=== PATIENT | male | born 1985 | race Two or more races ===

== ENCOUNTER 2017-07-09 12:40 | Emergency (ER) | payer SELFPAY ==
--- NOTE | 2017-07-09 13:09 | ER Document Report ---
ED Medical Screen (RME) - General Chief Complaint: High Blood Pressure Stated Complaint: BLOOD PRESSURE ISUES Time Seen by Provider: 07/09/17 13:02 Notes: This 31-year-old male patient comes emergency room complaining of a one-week history of elevated blood pressure, cold sweats, exhaustion, nausea vomiting weakness, dizziness. He has been on metformin in the past but no longer takes that medication. He was seen by primary care and started BuSpar, sertraline, and lisinopril HCTZ on 06/29/2017. He works at a [employer]. He reports not eating all last week, but ate this morning and then when he got to work this morning he felt quite nauseous. I have greeted and performed a rapid initial assessment of this patient. A comprehensive ED assessment and evaluation of the patient, analysis of test results and completion of the medical decision making process will be conducted by additional ED providers. TRAVEL OUTSIDE OF THE [place] IN LAST 30 DAYS: No - Related Data Allergies/Adverse Reactions: No Known Allergies Allergy (Verified 07/09/17 12:48) Past Medical History - Social History Chew tobacco use (# tins/day): No Frequency of alcohol use: Occasional - Past Medical History Cardiac Medical History: Reports: Hx Hypercholesterolemia, Hx Hypertension Pulmonary Medical History: Reports: Hx Asthma - childhood Endocrine Medical History: Reports: Hx Diabetes Mellitus Type 2 Renal/ Medical History: Denies: Hx Peritoneal Dialysis GI Medical History: Reports: Hx Gastroesophageal Reflux Disease Psychiatric Medical History: Reports: Hx Depression Physical Exam - Vital signs Vitals: Temp Pulse Resp BP Pulse Ox 98.5 F 117 H 16 127/90 H 97 07/09/17 12:46 07/09/17 12:46 07/09/17 12:46 07/09/17 12:46 07/09/17 12:46 Course - Vital Signs Vital signs: Temp Pulse Resp BP Pulse Ox 98.5 F 117 H 16 127/90 H 97 07/09/17 12:46 07/09/17 12:46 07/09/17 12:46 07/09/17 12:46 07/09/17 12:46
[2017-07-09 13:50] LABS: APPEARANCE,URINE CLEAR; BILIRUBIN,URINE NEGATIVE (NEGATIVE); GLUCOSE, URINE >=500 mg/dL (NEGATIVE); KETONES,URINE TRACE mg/dL (NEGATIVE); LEUKOCYTE ESTERASE,URINE NEGATIVE (NEGATIVE); NITRITE,URINE NEGATIVE (NEGATIVE); PROTEIN,URINE NEGATIVE (NEGATIVE); URINE SPECIFIC GRAVITY 1.029; UROBILINOGEN,URINE NEGATIVE mg/dL (<2.0)
[2017-07-09 13:52] LABS: ABSOLUTE MONOCYTES (AUTO) 0.9 10^3/uL (0.1-1.4); ABSOLUTE NEUT (AUTO) 12.3 10^3/uL (1.7-8.2); BASOPHILS % (AUTO) 0.2 % (0-2); EOSINOPHILS % (AUTO) 0.1 % (0-6); HEMATOCRIT 49.7 % (37.9-51.0); HEMOGLOBIN 17.6 g/dL (13.5-17.0); HGB HCT DIFFERENCE 3.1; LYMPHOCYTES % (AUTO) 6.7 % (13-45); MEAN CORPUSCULAR HGB CONC 35.3 g/dL (32.0-36.0); MEAN CORPUSCULAR VOLUME 85 fl (80-97); MONOCYTES % (AUTO) 6.5 % (3-13); RED BLOOD COUNT 5.86 10^6/uL (4.35-5.55); RED CELL DISTRIBUTION WIDTH 12.2 % (11.5-14.0); SEGMENTED NEUTROPHILS % (AUTO) 86.5 % (42-78); WHITE BLOOD COUNT 14.3 10^3/uL (4.0-10.5)
[2017-07-09] MEDS ORDERED: NORMAL SALINE 1000 ML 1,000 ML IV ONE (13:58)
[2017-07-09] MEDS ORDERED: NORMAL SALINE 1000 ML 2,000 ML IV ONE (13:58)
--- NOTE | 2017-07-09 14:01 | ER Document Report ---
ED General - General Chief Complaint: High Blood Pressure Stated Complaint: BLOOD PRESSURE ISUES Time Seen by Provider: 07/09/17 13:02 Mode of Arrival: Ambulatory Information source: Patient Notes: Patient presents complaining of nausea and vomiting 4 episodes today, lightheadedness, shortness of breath with intermittent chest pain since 1030 today. Patient does report occasional diaphoresis. Patient denies any cough or cold symptoms, sore throat or fever. Patient states he does have a history of diabetes although has not been on any medications to treat this as he did not have insurance for many years and then he saw a doctor a few years ago and was told that his blood sugar was okay. TRAVEL OUTSIDE OF THE [place] IN LAST 30 DAYS: No - HPI Onset: This morning Onset/Duration: Persistent Quality of pain: Achy Pain Level: 2 Associated symptoms: Chest pain, Nausea, Vomiting, Shortness of breath, Sweating. denies: Nonproductive cough, Productive cough, Diarrhea, Fever Exacerbated by: Denies Relieved by: Denies Similar symptoms previously: No Recently seen / treated by doctor: No - Related Data Allergies/Adverse Reactions: No Known Allergies Allergy (Verified 07/09/17 12:48) Home Medications: Current Home Medications Buspirone HCl 1 tab PO DAILY 07/09/17 [History] Lisinopril/Hydrochlorothiazide [Lisinopril-Hctz 10-12.5 mg Tab] 1 tab PO DAILY 07/09/17 [History] Sertraline HCl 1 tab PO DAILY 07/09/17 [History] Past Medical History - General Information source: Patient - Social History Smoking Status: Never Smoker Chew tobacco use (# tins/day): No Frequency of alcohol use: Occasional Drug Abuse: None Occupation: [employer] Lives with: Spouse/Significant other Family History: Reviewed & Not Pertinent - Past Medical History Cardiac Medical History: Reports: Hx Hypercholesterolemia, Hx Hypertension Pulmonary Medical History: Reports: Hx Asthma - childhood Endocrine Medical History: Reports: Hx Diabetes Mellitus Type 2 Renal/ Medical History: Denies: Hx Peritoneal Dialysis GI Medical History: Reports: Hx Gastroesophageal Reflux Disease Psychiatric Medical History: Reports: Hx Depression Surgical Hx: Negative Review of Systems - Review of Systems Constitutional: No symptoms reported. denies: Fever EENT: No symptoms reported Cardiovascular: Chest pain, Dizziness Respiratory: Short of breath. denies: Cough Gastrointestinal: Nausea, Vomiting. denies: Abdominal pain, Diarrhea Genitourinary: No symptoms reported. denies: Dysuria, Flank pain Male Genitourinary: No symptoms reported Musculoskeletal: No symptoms reported. denies: Back pain Skin: No symptoms reported Hematologic/Lymphatic: No symptoms reported Neurological/Psychological: No symptoms reported. denies: Headaches Physical Exam - Vital signs Vitals: Temp Pulse Resp BP Pulse Ox 98.5 F 117 H 16 127/90 H 97 07/09/17 12:46 07/09/17 12:46 07/09/17 12:46 07/09/17 12:46 07/09/17 12:46 - General General appearance: Appears well, Alert In distress: None - HEENT Head: Normocephalic, Atraumatic Eyes: Normal Conjunctiva: Normal Nasal: Normal Mouth/Lips: Normal Mucous membranes: Dry Neck: Normal, Supple. No: Lymphadenopathy - Respiratory Respiratory status: No respiratory distress Chest status: Nontender Breath sounds: Normal. No: Rhonchi, Stridor, Wheezing Chest palpation: Normal - Cardiovascular Rhythm: Tachycardia Heart sounds: S1 appreciated, S2 appreciated Murmur: No - Abdominal Inspection: Obese Distension: No distension Bowel sounds: Normal Tenderness: Nontender Organomegaly: No organomegaly - Back Back: Normal, Nontender. No: CVA tenderness, Vertebra tenderness - Extremities General upper extremity: Normal inspection, Normal ROM General lower extremity: Normal inspection, Nontender, Normal ROM - Neurological Neuro grossly intact: Yes Cognition: Normal [place] Coma Scale Eye Opening: Spontaneous [place] Coma Scale Verbal: Oriented [place] Coma Scale Motor: Obeys Commands [place] Coma Scale Total: 15 - Psychological Associated symptoms: Normal affect, Normal mood - Skin Skin Temperature: Warm Skin Moisture: Dry Skin Color: Normal Course - Re-evaluation Re-evalutation: 07/09/17 15:[address] Hand regarding patient presentation. Advises treating patient's hyperglycemia with metformin and having him follow-up with his primary doctor for recheck. 07/09/17 18:41 Patient denies any chest pain symptoms at this time. Vital signs stable. Patient feeling much better. Discussed diabetic diet with patient importance for monitoring his blood sugar. Discussed worsening signs or symptoms that patient should return to me before. Patient verbalized understanding and agrees with plan of care The patient has atypical chest pain as the patient's chest pain is not suggestive of pulmonary embolus, cardiac ischemia, aortic dissection, or other serious etiology. Given the extremely low risk of these diagnoses for the test in evaluation for these possibilities does not appear to be indicated at this time. Patient has been instructed to return if the symptoms worsen or change in any way. - Vital Signs Vital signs: Temp Pulse Resp BP Pulse Ox 98.5 F 117 H 16 127/90 H 97 07/09/17 12:46 07/09/17 12:46 07/09/17 12:46 07/09/17 12:46 07/09/17 12:46 - Laboratory Result Diagrams: 07/09/17 13:25 07/09/17 13:25 Laboratory results interpreted by me: 07/09/17 07/09/17 07/09/17 13:25 13:25 13:25 WBC 14.3 H RBC 5.86 H Hgb 17.6 H Seg Neutrophils % 86.5 H Lymphocytes % 6.7 L Absolute Neutrophils 12.3 H Sodium 131.1 L Chloride 91 L Glucose 606 H* POC Glucose Calcium 10.3 H Alkaline Phosphatase 141 H Creatine Kinase Urine Glucose (UA) >=500 H Urine Ketones TRACE H 07/09/17 07/09/17 13:25 16:52 WBC RBC Hgb Seg Neutrophils % Lymphocytes % Absolute Neutrophils Sodium Chloride Glucose POC Glucose 245 H Calcium Alkaline Phosphatase Creatine Kinase 40 L Urine Glucose (UA) Urine Ketones 07/09/17 18:43 Labs- Entire Visit 07/09/17 07/09/17 07/09/17 13:25 13:25 13:25 WBC 14.3 H RBC 5.86 H Hgb 17.6 H Hct 49.7 MCV 85 MCH 30.0 MCHC 35.3 RDW 12.2 Plt Count 254 Seg Neutrophils % 86.5 H Lymphocytes % 6.7 L Monocytes % 6.5 Eosinophils % 0.1 Basophils % 0.2 Absolute Neutrophils 12.3 H Absolute Lymphocytes 1.0 Absolute Monocytes 0.9 Absolute Eosinophils 0.0 Absolute Basophils 0.0 Sodium 131.1 L Potassium 4.8 Chloride 91 L Carbon Dioxide 25 Anion Gap 15 BUN 16 Creatinine 0.96 Est GFR ( Amer) > 60 Est GFR (Non-Af Amer) > 60 Glucose 606 H* POC Glucose Calcium 10.3 H Total Bilirubin 1.1 Direct Bilirubin 0.4 Indirect Bilirubin Not Reportable Neonat Total Bilirubin Not Reportable AST 41 ALT 52 Alkaline Phosphatase 141 H Creatine Kinase Total Creatine Kinase CK-MM (CK-3) CK-MB (CK-2) CK-BB (CK-1) Macro CK Type I Troponin I Total Protein 7.5 Albumin 4.6 Lipase Urine Color STRAW Urine Appearance CLEAR Urine pH 6.0 Ur Specific [place] 1.029 Urine Protein NEGATIVE Urine Glucose (UA) >=500 H Urine Ketones TRACE H Urine Blood NEGATIVE Urine Nitrite NEGATIVE Urine Bilirubin NEGATIVE Urine Urobilinogen NEGATIVE Ur Leukocyte Esterase NEGATIVE Urine WBC (Auto) 1 Urine RBC (Auto) 1 Urine Ascorbic Acid NEGATIVE Urine Opiates Screen Urine Methadone Screen Ur Barbiturates Screen Ur Phencyclidine Scrn Ur Amphetamines Screen U Benzodiazepines Scrn Urine Cocaine Screen U Marijuana (THC) Screen 07/09/17 07/09/17 07/09/17 13:25 13:25 13:25 WBC RBC Hgb Hct MCV MCH MCHC RDW Plt Count Seg Neutrophils % Lymphocytes % Monocytes % Eosinophils % Basophils % Absolute Neutrophils Absolute Lymphocytes Absolute Monocytes Absolute Eosinophils Absolute Basophils Sodium Potassium Chloride Carbon Dioxide Anion Gap BUN Creatinine Est GFR ( Amer) Est GFR (Non-Af Amer) Glucose POC Glucose Calcium Total Bilirubin Direct Bilirubin Indirect Bilirubin Neonat Total Bilirubin AST ALT Alkaline Phosphatase Creatine Kinase Total Creatine Kinase Cancelled CK-MM (CK-3) Cancelled CK-MB (CK-2) Cancelled CK-BB (CK-1) Cancelled Macro CK Type I Cancelled Troponin I Total Protein Albumin Lipase 127.8 Urine Color Urine Appearance Urine pH Ur Specific [place] Urine Protein Urine Glucose (UA) Urine Ketones Urine Blood Urine Nitrite Urine Bilirubin Urine Urobilinogen Ur Leukocyte Esterase Urine WBC (Auto) Urine RBC (Auto) Urine Ascorbic Acid Urine Opiates Screen NEGATIVE Urine Methadone Screen NEGATIVE Ur Barbiturates Screen NEGATIVE Ur Phencyclidine Scrn NEGATIVE Ur Amphetamines Screen NEGATIVE U Benzodiazepines Scrn NEGATIVE Urine Cocaine Screen NEGATIVE U Marijuana (THC) Screen NEGATIVE 07/09/17 07/09/17 07/09/17 13:25 14:35 16:52 WBC RBC Hgb Hct MCV MCH MCHC RDW Plt Count Seg Neutrophils % Lymphocytes % Monocytes % Eosinophils % Basophils % Absolute Neutrophils Absolute Lymphocytes Absolute Monocytes Absolute Eosinophils Absolute Basophils Sodium Potassium Chloride Carbon Dioxide Anion Gap BUN Creatinine Est GFR ( Amer) Est GFR (Non-Af Amer) Glucose POC Glucose 245 H Calcium Total Bilirubin Direct Bilirubin Indirect Bilirubin Neonat Total Bilirubin AST ALT Alkaline Phosphatase Creatine Kinase 40 L Total Creatine Kinase CK-MM (CK-3) CK-MB (CK-2) 0.48 CK-BB (CK-1) Macro CK Type I Troponin I < 0.012 Total Protein Albumin Lipase Urine Color Urine Appearance Urine pH Ur Specific [place] Urine Protein Urine Glucose (UA) Urine Ketones Urine Blood Urine Nitrite Urine Bilirubin Urine Urobilinogen Ur Leukocyte Esterase Urine WBC (Auto) Urine RBC (Auto) Urine Ascorbic Acid Urine Opiates Screen Urine Methadone Screen Ur Barbiturates Screen Ur Phencyclidine Scrn Ur Amphetamines Screen U Benzodiazepines Scrn Urine Cocaine Screen U Marijuana (THC) Screen 07/09/17 17:50 WBC RBC Hgb Hct MCV MCH MCHC RDW Plt Count Seg Neutrophils % Lymphocytes % Monocytes % Eosinophils % Basophils % Absolute Neutrophils Absolute Lymphocytes Absolute Monocytes Absolute Eosinophils Absolute Basophils Sodium Potassium Chloride Carbon Dioxide Anion Gap BUN Creatinine Est GFR ( Amer) Est GFR (Non-Af Amer) Glucose POC Glucose Calcium Total Bilirubin Direct Bilirubin Indirect Bilirubin Neonat Total Bilirubin AST ALT Alkaline Phosphatase Creatine Kinase Total Creatine Kinase CK-MM (CK-3) CK-MB (CK-2) CK-BB (CK-1) Macro CK Type I Troponin I < 0.012 Total Protein Albumin Lipase Urine Color Urine Appearance Urine pH Ur Specific [place] Urine Protein Urine Glucose (UA) Urine Ketones Urine Blood Urine Nitrite Urine Bilirubin Urine Urobilinogen Ur Leukocyte Esterase Urine WBC (Auto) Urine RBC (Auto) Urine Ascorbic Acid Urine Opiates Screen Urine Methadone Screen Ur Barbiturates Screen Ur Phencyclidine Scrn Ur Amphetamines Screen U Benzodiazepines Scrn Urine Cocaine Screen U Marijuana (THC) Screen - Diagnostic Test Radiology reviewed: Reports reviewed - EKG Interpretation by Me EKG shows normal: Sinus rhythm Rate: Normal Rhythm: NSR Discharge - Discharge Clinical Impression: Dehydration, Hyperglycemia, Hx of diabetes mellitus Chest pain Qualifiers: Chest pain type: unspecified Qualified Code(s): R07.9 - Chest pain, unspecified Condition: Stable Disposition: HOME, SELF-CARE Instructions: Chest Pain of Unclear Cause ([facility]), Dehydration ([facility]), Diabetes ( [facility]), Glucophage ([facility]), Intravenous (IV) Fluids ([facility]) Additional Instructions: Return immediately for any new or worsening symptoms Followup with your primary care provider, call Wednesday to make a followup appointment It is important that you eat a diabetic diet with no sugars and limited carbs. you can go on to the [place] [employer] website for additional diet information Test your blood sugar at least twice a day or at any time that you do not feel well Prescriptions: Blood-Glucose Meter, Drum-Type [Accu-Chek] 1 kit MC ASDIR PRN #1 kit PRN Reason: Metformin HCl 500 mg PO BID #60 tablet Forms: Return to Work Referrals: SCOTT ARRIAZA MD [Primary Care Provider] - 07/12/17
[2017-07-09 14:03] LABS: ADD ON TESTING BLD IN LAB ACKNOWLEDGE
[2017-07-09 14:07] LABS: ALANINE AMINOTRANSFERASE 52 U/L (21-72); ALBUMIN 4.6 g/dL (3.5-5.0); ALKALINE PHOSPHATASE 141 U/L (38-126); ANION GAP 15 (5-19); ASPARTATE AMINO TRANSFERASE 41 U/L (17-59); BILIRUBIN,DIRECT 0.4 mg/dL (0.0-0.4); BILIRUBIN,TOTAL 1.1 mg/dL (0.2-1.3); BLOOD UREA NITROGEN 16 mg/dL (7-20); CALCIUM 10.3 mg/dL (8.4-10.2); CARBON DIOXIDE 25 mmol/L (22-30); CHLORIDE 91 mmol/L (98-107); CREATININE RESULT 0.96 mg/dL (0.52-1.25); POTASSIUM 4.8 mmol/L (3.6-5.0); SODIUM 131.1 mmol/L (137-145); TOTAL PROTEIN 7.5 g/dL (6.3-8.2)
[2017-07-09 14:19] LABS: GLUCOSE 606 mg/dL (75-110)
[2017-07-09 14:24] LABS: LIPASE 127.8 U/L (23-300)
[2017-07-09] MEDS ORDERED: INSULIN REG, HUMAN 100 UNIT/ML 3 ML VIAL (PYX) SUBCUT ONE (14:34)
[2017-07-09 14:40] LABS: URINE BARBITURATES SCREEN NEGATIVE; URINE METHADONE SCREEN NEGATIVE; URINE OPIATES LOW NEGATIVE; URINE PHENCYCLIDINE SCREEN NEGATIVE
--- NOTE | 2017-07-09 15:11 | RADIOLOGY REPORT (SQ) ---
EXAM DESCRIPTION: CHEST PA/LAT COMPLETED DATE/TIME: 07/09/2017 2:58 pm REASON FOR STUDY: cp COMPARISON: 09/04/2011 EXAM PARAMETERS: NUMBER OF VIEWS: two views TECHNIQUE: Digital Frontal and Lateral radiographic views of the chest acquired. RADIATION DOSE: NA LIMITATIONS: none FINDINGS: LUNGS AND PLEURA: No opacities, masses or pneumothorax. No pleural effusion. MEDIASTINUM AND HILAR STRUCTURES: No masses or contour abnormalities. HEART AND VASCULAR STRUCTURES: Heart normal size. No evidence for failure. BONES: No acute findings. HARDWARE: None in the chest. OTHER: No other significant finding. IMPRESSION: NO SIGNIFICANT RADIOGRAPHIC FINDING IN THE CHEST. TECHNICAL DOCUMENTATION: JOB ID: [id number] [employer]- All Rights Reserved
[2017-07-09 15:20] LABS: CREATINE KINASE MB 0.48 ng/mL (<4.55)
[2017-07-09 15:26] LABS: TROPONIN I < 0.012 ng/mL
[2017-07-09] MEDS ORDERED: NORMAL SALINE 1000 ML 1,000 ML IV PRN (15:48)
[2017-07-09] MEDS ORDERED: METFORMIN HCL 500 MG TABLET PO ONE (17:25)
[2017-07-09 19:25] VITALS: BP 130/78
--- NOTE | 2017-07-09 19:29 | EKG REPORT ---
SEVERITY:- BORDERLINE ECG - SINUS TACHYCARDIA BORDERLINE T WAVE ABNORMALITIES : Confirmed by: Benedicto Reilly MD 09-Jul-2017 19:28:33
--- NOTE | 2017-07-09 19:29 | EKG REPORT ---
SEVERITY:- NORMAL ECG - SINUS RHYTHM : Confirmed by: Benedicto Reilly MD 09-Jul-2017 19:28:09
== END 2017-07-09 19:15 | disposition home or self-care (01) ==
LOC: ER 12:40
DX: E86.0 Dehydration (principal); E11.65 Type 2 diabetes mellitus with hyperglycemia; I10 Essential (primary) hypertension; R07.89 Other chest pain; R11.2 Nausea with vomiting, unspecified; R42 Dizziness and giddiness; R06.02 Shortness of breath; R61 Generalized hyperhidrosis; R00.0 Tachycardia, unspecified
CPT/HCPCS: 93005; 99284; 96361; 96365; 96366; 36415; 82553; 82962; 82550; 83690; 85025; 80053; 81001; 84484; 80307; 71020; 93010; J1815; J7030